=== PATIENT | male | born 1975 | race Caucasian/White ===

== ENCOUNTER 2022-06-14 11:54 | Inpatient (IN) | payer BC, MEDICAID, SELFPAY ==
[2022-06-14] VITALS (39 sets, daily range): BP systolic 140–162; BP diastolic 61–109; PULSE 116–154; RESP 22–44; TEMP 36.4; O2SAT 100; BMI 29.4
--- NOTE | ~2022-06-14 | XR_ITS ---
EXAMINATION: XR chest 2V 06/14/2022 12:40 INDICATION: Chest pain and shortness of breath PROCEDURE: 2 view chest COMPARISON: No prior studies for comparison. FINDINGS: The lungs are clear. The cardiomediastinal silhouette is within normal limits. There are no pleural effusions. There is no pneumothorax suspected. There is a calcified granuloma in the rig ht middle lobe. IMPRESSION: 1: NO ACUTE CARDIOPULMONARY DISEASE. Reviewed, dictated and finalized at location B. RAMMING DIRECTOR
--- NOTE | 2022-06-14 11:55 | ECG_ITS ---
Measurements Intervals [place] Rate: 124 P: [place]: 0 QRS: 7 QRSD: 90 T: 49 QT: 292 QTc: 420 Interpretive Statements SINUS TACHYCARDIA ABNORMAL RHYTHM ECG NO PREVIOUS ECG AVAILABLE FOR COMPARISON Electronically Signed On 06-14-2022 15:36:11 COMPUTER GRAPHIC DESIGNER by Adam Trinh M.D.
--- NOTE | 2022-06-14 12:08 | PC.NURSE ---
Pt is from [facility]. pt was arrested yesterday he states. pt states he also stopped using fentanyl 4 days ago.
[2022-06-14 12:15] LABS: Hematocrit 54.7 % (42.0-52.0); Hemoglobin 17.6 g/dL (14.0-18.0); Mean Corpuscular HGB Conc 32.2 g/dl (32-36); Mean Corpuscular Hemoglobin 27.5 pg (26-34); Mean Corpuscular Volume 85.6 fl (80-100); Mean Platelet Volume 10.7 fl (7.4-10.4); Platelet Count Result 383 k/mm3 (150-375); Red Blood Count 6.39 M/mm3 (4.6-6.20); Red Cell Distribution Width 13.7 % (11.5-14.5); White Blood Count 44.6 K/mm3 (4.5-10.0)
[2022-06-14 12:28] LABS: INR 1.3
[2022-06-14 12:29] LABS: Partial Thromboplastin Time 31.3 SECONDS (22.3-36.8)
[2022-06-14 12:39] LABS: Troponin I < 0.012 ng/mL (0.000-0.034)
[2022-06-14 12:40] LABS: Alanine Aminotransferase 51 U/L (6-50); Alkaline Phosphatase 155 U/L (38-126); Aspartate Amino Transferase 33 U/L (17-59); Blood Urea Nitrogen 37 mg/dL (9-20); Calcium 9.1 mg/dL (8.4-10.2); Carbon Dioxide < 5 mmol/L (22-30); Chloride 92 mmol/L (98-107); Estimated Glomerular Filt Rate 34; Glucose 1069 mg/dL (65-110); Lipase 335 U/L (23-300); Potassium 6.1 mmol/L (3.4-5.0); Sodium 128 mmol/L (137-145)
[2022-06-14 12:51] LABS: Band Neutrophils Percent 8 % (0-6); Lymphocytes Absolute Manual 2.23 K/mm3 (1.1-4.5); Lymphocytes Percent Manual 5 % (18-44); Monocytes Absolute Manual 5.79 K/mm3 (0.1-0.90); Monocytes Percent Manual 13 % (3-9); Neutrophils Absolute Manual 36.12 K/mm3 (1.3-6.7); Neutrophils Percent Manual 73 % (46-73); Total Cells Counted 100
[2022-06-14 12:52] LABS: Metamyelocytes Percent 1 %; Platelet Estimate Adequate (Adequate); Schistocytes None Seen (NORMAL)
[2022-06-14] MEDS: ASPIRIN 81 MG CHEWABLE TABLET 324 MG PO (12:54)
[2022-06-14] MEDS: SODIUM CHLORIDE 0.9% IV 1,000 ML 999 ML IV CONT ×3 (12:56→13:20)
[2022-06-14 13:00] LABS: Alveolar/Arterial O2 Gradient 2.3 mmHg; Base Excess ABG -25.8 mEq/l (+/-2.0); Carboxyhemoglobin 0.8 % THb (0-2.0); Fractional Inspired Oxygen 21 %; HCO3 ABG 3.4 mEq/l (22.0-26.0); Methemoglobin ABG 0.6 %THb (0-1.5); Oxygen Content ABG 23.7 %vol (16.0-22.0); Oxyhemoglobin 96.2 % THb (90.0-100.0); PO2 ABG 130.7 mmHg (80.0-100.0); PO2 FiO2 Ratio Arterial Blood 6.22 %; Reduced Hemoglobin 2.4 %THb (0-5.0); Total Hemoglobin 17.4 g/dL (12.0-18.0)
--- NOTE | 2022-06-14 13:01 | ED.CHESTPAIN ---
HPI - Chest Pain General Chief Complaint: Chest Pain Stated Complaint: chest pain Time Seen by Provider: 06/14/22 12:41 History of Present Illness HPI narrative: Patient is a 46-year-old male who presents ER in moderate distress. Reports has some aching chest pain but also reports he is very thirsty. He has had some dry heaves. Patient has been in senior care for the last 4 days. He is currently withdrawing from fentanyl. Accu-Chek reading high. Patient denies personal history of diabetes. He reports that he has been having increased thirst over the last month. Reports family history of diabetes. Patient also endorses diffuse body cramping. Related Data Home Medications Medication Instructions Recorded Confirmed lisinopril 20 mg tablet 20 mg PO DAILY 04/28/19 04/28/19 trazodone 50 mg tablet 50 mg PO HS 04/28/19 04/28/19 Allergies Allergy/AdvReac Type Severity Reaction Status Date / Time morphine AdvReac Intermediate Vomiting Verified 06/14/22 12:04 Review of Systems Review of Systems: All systems reviewed & are unremarkable except as noted in HPI and below Constitutional: Constitutional: Denies chills, Reports fatigue and Denies fever(s) ENT: Denies nasal congestion and Denies sore throat Cardiovascular: Cardiovascular: Reports chest pain, Denies rapid heart rate and Denies radiating jaw, neck or arm pain Respiratory: Respiratory: Denies cough and Denies dyspnea Gastrointestinal: Gastrointestinal: Denies abdominal pain, Denies diarrhea, Reports nausea and Reports vomiting Musculoskeletal: Musculoskeletal: Reports myalgias, Denies arthralgias, Denies joint swelling and Reports muscle cramps Endocrine: Endocrine: Reports polydipsia and Reports polyuria PMFSH Past Medical History Medical History (Updated 06/14/22 @ 18:47 by Roger Daniel MD) Gout Surgical History Surgical History (Updated 06/14/22 @ 15:52 by Sofía Lee PA-C) History of right knee surgery Social History Social History (Updated 06/14/22 @ 15:58 by Sofía Lee PA-C) Social History: Surrogate medical decision maker: Code status: Exam Narrative: GENERAL: Ill-appearing, well-nourished, and in moderate distress. HEAD: Normocephalic, atraumatic. EYES: PERRL and EOMI. ENT: Dry mucous membranes. NECK: Supple. CHEST: Clear to auscultation. No respiratory distress. HEART: Tachycardic and regular. Normal peripheral pulses. ABDOMEN: Soft, nontender, nondistended. EXTREMITIES: Normal range of motion. No edema. SKIN: Warm, dry, no rash. NEURO: Alert and oriented x3. PSYCH: Normal mood and affect. Course Course Emergency Course: Patient seriously here. Discussed case with clinical associate. Will bolus with 3 L IV fluid and started on maintenance fluid as well as an insulin drip. Patient also received 10 units of insulin IV bolus. Given the acidosis that was found patient started on bicarb drip. Patient aware of diagnosis and treatment plan. Leukocytosis is nonspecific and is likely acute phase reactant. Patient also appears quite hemoconcentrated on his CBC. Fluids will go a long way in helping him. Vital Signs Vital signs: Vital Signs Temperature 97.5 F L 06/14/22 11:57 Pulse Rate 124 H 06/14/22 11:57 Pulse Oximetry 100 06/14/22 11:57 Oxygen Delivery Room Air 06/14/22 11:57 Temperature 97.5 F L 06/14/22 11:57 Pulse Rate 138 H 06/14/22 17:00 Respiratory Rate 42 H 06/14/22 17:00 Blood Pressure 162/104 H 06/14/22 17:00 Pulse Oximetry 100 06/14/22 16:09 Oxygen Delivery Nasal Cannula 06/14/22 12:45 Oxygen Flow Rate 2 06/14/22 12:45 MDM - Chest Pain Lab Data 06/14/22 12:05 06/14/22 12:06 Labs: Lab Results 06/14/22 06/14/22 06/14/22 Range/Units 12:05 12:06 12:06 WBC 44.6 H (4.5-10.0) K/mm3 RBC 6.39 H (4.6-6.20) M/mm3 Hgb 17.6 (14.0-18.0) g/dL Hct 54.7 H (42.0-52.0) % MCV 85.6 (80-100) fl MCH 27.5 (26-34)
[2022-06-14] MEDS: INSULIN HUMAN REGULAR (*BKC) 100 UNITS/ML 10 UNITS IV PUSH (13:03)
[2022-06-14 13:04] LABS: pH ABG 7.008 (7.350-7.450)
[2022-06-14 13:05] LABS: Modified Allen's Test Pass; Site Drawn LEFT RADIAL
[2022-06-14] MEDS: SODIUM BICARBONATE 8.4% 150 MEQ in WATER, STERILE FOR INJECTION 950 ML 50 MEQ IV CONT (13:37)
[2022-06-14] MEDS: SODIUM CHLORIDE 0.9% IV 1,000 ML 150 ML IV CONT ×3 (13:53→21:43)
[2022-06-14 14:05] LABS: Glucose Point of Care > 500 mg/dl (65-105)
--- NOTE | 2022-06-14 14:06 | PC.NURSE ---
Bedside blood glucose accucheck reading High. Dr Daniel notified at this time
[2022-06-14 14:16] LABS: Influenza A QL RT-PCR Negative (Negative); Influenza B QL RT-PCR Negative (Negative); SARS-CoV-2 RNA PCR Negative
[2022-06-14] MEDS: INSULIN HUMAN REGULAR (*BKC) 100 UNITS in SODIUM CHLORIDE 0.9% IV 99 ML 15.3 UNITS IV CONT (15:02)
[2022-06-14 15:05] LABS: Glucose 827 mg/dL (65-110)
[2022-06-14 15:45] LABS: Troponin I < 0.012 ng/mL (0.000-0.034)
--- NOTE | 2022-06-14 15:50 | PM.IMHP ---
H&P: HPI History of Present Illness Date/Time: 06/14/22 15:50 Chief Complaint: Chest pain and shortness of breath. Narrative: This is a 46-year-old male with hypertension and history of fentanyl addiction who presented to the emergency department via EMS for evaluation of chest pain and shortness a breath. Patient provides the following history. He has been detained at [facility] and the last several days he has felt unwell which he initially attributed to fentanyl withdrawal to include nausea and vomiting. The last 2 days he has experienced anterior chest tightness and shortness of breath to the point where he could not even speak in full sentences. I felt like I was literally dying. He denies headache, neck ache, sinus congestion, sore throat, cough, diarrhea, or dysuria. He denies exertional chest pain, pleuritic pain, palpitations, syncope, near syncope, orthopnea, paroxysmal nocturnal dyspnea, and lower extremity edema. No epigastric or abdominal pain, bloating, belching, hematemesis, melena, hematochezia. No known sick contacts. Vital signs on arrival to the ED: Pulse 124, blood pressure 160/84, respiratory rate 36, temperature 97.5?. Pertinent labs include a WBC of 44.6 (8% bands), sodium 128, potassium 6.1, chloride 92, serum carbon dioxide < 5, BUN 37, creatinine 2.10, glucose 1069, lipase 335. ABG showed a pH of 7.008, pCO2 14.0, bicarb 3.4. He was negative for influenza and COVID. Chest x-ray showed no acute cardiopulmonary disease. EKG showed sinus tachycardia with no acute ST segment changes. He has no known history of diabetes or prediabetes. He has unintentionally lost about 35 to 40 lb. He has evidence of tinea on exam today. He has not had any paresthesias, blurry vision, and has not noticed any nonhealing wounds. He does endorse polydipsia. His has since been started on an insulin drip and he is being admitted to the ICU with new onset diabetes. Review of Systems Review of Systems: Twelve systems were reviewed and are negative except for as per HPI. [facility] Past Medical History Medical History (Updated 06/14/22 @ 22:31 by Sofía Lee PA-C) Gout Hypertension Surgical History Surgical History History of right knee surgery Family History Family History Father Diabetes mellitus End stage renal disease Mother Hypertension Social History Social History (Updated 06/14/22 @ 22:18 by Sofía Lee PA-C) Social History: Surrogate medical decision maker: Muna Saini, mother. Code status: Full code. Smoking status: Never smoker Alcohol intake: never Substance use: current Substance use type: opiates Meds Home Medications and Allergies Home Medications Medication Instructions Recorded Confirmed Type doxycycline monohydrate 100 mg 100 mg PO BID #20 tabs 04/28/19 Rx tablet lisinopril 20 mg tablet 20 mg PO DAILY 04/28/19 04/28/19 History trazodone 50 mg tablet 50 mg PO HS 04/28/19 04/28/19 History triamcinolone acetonide 0.1 % 1 applic topical BID #15 grams 04/28/19 Rx topical cream Allergies Allergy/AdvReac Type Severity Reaction Status Date / Time morphine AdvReac Intermediate Vomiting Verified 06/14/22 12:04 Vital Signs Vital Signs - 24 hr 06/14/22 11:57 06/14/22 12:45 06/14/22 13:23 Temperature 97.5 F L Pulse Rate 124 H 116 H Respiratory Rate 36 H Blood Pressure 156/62 H Pulse Oximetry 100 100 100 Oxygen Delivery Room Air Nasal Cannula Oxygen Flow Rate 2 06/14/22 13:25 06/14/22 13:27 06/14/22 13:31 Temperature Pulse Rate 119 H 117 H 117 H Respiratory Rate 37 H 34 H 42 H Blood Pressure 140/74 147/61 H Pulse Oximetry 100 100 100 Oxygen Delivery Oxygen Flow Rate 06/14/22 13:32 06/14/22 13:45 06/14/22 14:02 Temperature Pulse Rate 118 H 120 H 122 H Respiratory Rate 39 H 41 H 37
[2022-06-14 16:20] LABS: Glucose Point of Care > 500 mg/dl (65-105)
[2022-06-14 16:52] LABS: Lactic Acid Reflex 1.8 mmol/L (0.7-2.0)
[2022-06-14 16:58] LABS: Anion Gap 20 mmol/L (8-16); Blood Urea Nitrogen 38 mg/dL (9-20); Calcium 9.2 mg/dL (8.4-10.2); Carbon Dioxide 6 mmol/L (22-30); Chloride 108 mmol/L (98-107); Estimated Glomerular Filt Rate 51; Magnesium 2.9 mg/dL (1.6-2.3); Phosphorus 2.5 mg/dL (2.5-4.5); Potassium 4.5 mmol/L (3.4-5.0); Sodium 134 mmol/L (137-145)
[2022-06-14 17:06] LABS: Glucose 668 mg/dL (65-110)
[2022-06-14] MEDS: SODIUM BICARBONATE 8.4% 50 MEQ/50 ML SYRINGE 100 MEQ IV PUSH (17:07)
[2022-06-14 17:17] LABS: Anion Gap 20 mmol/L (8-16); Blood Urea Nitrogen 39 mg/dL (9-20); Calcium 9.3 mg/dL (8.4-10.2); Carbon Dioxide 6 mmol/L (22-30); Chloride 107 mmol/L (98-107); Estimated Glomerular Filt Rate 47; Potassium 4.7 mmol/L (3.4-5.0); Sodium 133 mmol/L (137-145)
[2022-06-14 17:34] LABS: Glucose 666 mg/dL (65-110)
[2022-06-14 17:35] LABS: Add Urine Microscopic? YES; Appearance Urine Clear (Clear); Bacteria Urine None Seen /hpf; Bilirubin Urine Negative (Negative); Blood Urine 2+ (Negative); Color Urine Yellow (Yellow); Glucose Urine UA 3+ mg/dL (Negative); Ketones Urine 4+ mg/dL (Negative); Leukocyte Esterase Ur Negative LEU/UL (NEGATIVE); Nitrate Urine Negative (Negative); Protein Urine 1+ mg/dL (Negative); RBC Urine 0-2 /hpf (0-2); Specific Grav Ur 1.023 (1.001-1.035); Squamous Epithelial Cell Urine None seen /hpf (Few); Urobilinogen Urine 0.2 mg/dL (<2.0); WBC Urine 0-5 /hpf (0-3)
[2022-06-14 18:09] LABS: Hemoglobin A1C > 14.0 % (<5.7)
[2022-06-14 18:24] LABS: Troponin I < 0.012 ng/mL (0.000-0.034)
[2022-06-14 18:51] LABS: Glucose Point of Care > 500 mg/dl (65-105)
[2022-06-14 20:29] LABS: Glucose Point of Care 398 mg/dl (65-105)
[2022-06-14 20:56] LABS: Anion Gap 19 mmol/L (8-16); Blood Urea Nitrogen 38 mg/dL (9-20); Calcium 10.1 mg/dL (8.4-10.2); Carbon Dioxide 8 mmol/L (22-30); Chloride 111 mmol/L (98-107); Estimated Glomerular Filt Rate > 60; Glucose 427 mg/dL (65-110); Potassium 3.9 mmol/L (3.4-5.0); Sodium 138 mmol/L (137-145)
[2022-06-14 21:50] LABS: Glucose Point of Care 341 mg/dl (65-105)
[2022-06-14 22:24] LABS: Glucose Point of Care 333 mg/dl (65-105)
--- NOTE | 2022-06-14 22:50 | PC.NURSE ---
This patient, Raj Saini, was admitted to Intensive Care Unit-9. Patient/family oriented to hospital policies and general routines including ID bracelet, bed and alarms, visiting hours, pain management, procedures, bathroom and other care routines, personal items, smoking policy, room service/diet, and visiting hours. Information on how to activate the Rapid Response Team has been discussed. Patient/Family are encouraged to report perceived risks to care and to ask questions if they do not understand what they are told or what they should do.
[2022-06-14 23:07] LABS: Glucose Point of Care 328 mg/dl (65-105)
[2022-06-14 23:53] LABS: CRP 3.9 mg/dL (<1.0)
[2022-06-14 23:59] LABS: Glucose Point of Care 302 mg/dl (65-105)
[2022-06-15] VITALS (18 sets, daily range): BP systolic 153–177; BP diastolic 83–115; PULSE 69–134; RESP 18–38; TEMP 36.4–37.3; O2SAT 100
[2022-06-15] MEDS: SODIUM CHLORIDE 0.9% IV 1,000 ML 999 ML IV CONT
[2022-06-15] MEDS: INSULIN HUMAN REGULAR (*BKC) 100 UNITS in SODIUM CHLORIDE 0.9% IV 99 ML 7.3 UNITS IV CONT (00:01)
[2022-06-15 01:08] LABS: Glucose Point of Care 267 mg/dl (65-105)
[2022-06-15 01:24] LABS: Anion Gap 14 mmol/L (8-16); Blood Urea Nitrogen 36 mg/dL (9-20); Calcium 9.6 mg/dL (8.4-10.2); Carbon Dioxide 13 mmol/L (22-30); Chloride 113 mmol/L (98-107); Estimated CRCL calculation 83 ml/min; Estimated Glomerular Filt Rate > 60; Glucose 263 mg/dL (65-110); Potassium 3.7 mmol/L (3.4-5.0); Sodium 140 mmol/L (137-145)
[2022-06-15 02:11] LABS: Glucose Point of Care 235 mg/dl (65-105)
[2022-06-15] MEDS: KCL 20 MEQ/D5/0.45% SOD CHL 1,000 ML 150 ML IV CONT ×2 (02:13→08:39)
[2022-06-15 03:01] LABS: Glucose Point of Care 185 mg/dl (65-105)
[2022-06-15 03:36] LABS: Hematocrit 49.9 % (42.0-52.0); Mean Corpuscular HGB Conc 34.1 g/dl (32-36); Mean Corpuscular Hemoglobin 27.6 pg (26-34); Mean Corpuscular Volume 81.1 fl (80-100); Mean Platelet Volume 9.8 fl (7.4-10.4); Platelet Count Result 203 k/mm3 (150-375); Red Blood Count 6.15 M/mm3 (4.6-6.20); Red Cell Distribution Width 14.2 % (11.5-14.5); White Blood Count 21.5 K/mm3 (4.5-10.0)
[2022-06-15 03:57] LABS: Alanine Aminotransferase 40 U/L (6-50); Albumin Level 3.7 g/dL (3.5-5.1); Alkaline Phosphatase 115 U/L (38-126); Anion Gap 11 mmol/L (8-16); Aspartate Amino Transferase 27 U/L (17-59); Bilirubin,Total 0.9 mg/dL (0.2-1.3); Blood Urea Nitrogen 32 mg/dL (9-20); Calcium 8.9 mg/dL (8.4-10.2); Carbon Dioxide 13 mmol/L (22-30); Chloride 119 mmol/L (98-107); Estimated CRCL calculation 92 ml/min; Estimated Glomerular Filt Rate > 60; Glucose 176 mg/dL (65-110); Magnesium 2.7 mg/dL (1.6-2.3); Potassium 3.2 mmol/L (3.4-5.0); Sodium 143 mmol/L (137-145)
[2022-06-15 04:08] LABS: Glucose Point of Care 184 mg/dl (65-105)
[2022-06-15 04:40] LABS: Band Neutrophils Percent 15 % (0-6); Lymphocytes Absolute Manual 1.72 K/mm3 (1.1-4.5); Monocytes Absolute Manual 0.86 K/mm3 (0.1-0.90); Monocytes Percent Manual 4 % (3-9); Neutrophils Absolute Manual 18.92 K/mm3 (1.3-6.7); Neutrophils Percent Manual 73 % (46-73); Platelet Estimate Adequate (Adequate); Total Cells Counted 100
[2022-06-15 04:49] LABS: Schistocytes None Seen (NORMAL); Smudge Cells PRESENT
[2022-06-15 05:09] LABS: Glucose Point of Care 201 mg/dl (65-105)
[2022-06-15 06:11] LABS: Glucose Point of Care 145 mg/dl (65-105)
[2022-06-15 07:28] LABS: Glucose Point of Care 142 mg/dl (65-105)
[2022-06-15] MEDS: FAMOTIDINE 20 MG/2 ML VIAL IV PUSH ×2 (08:38→20:12)
[2022-06-15] MEDS: POTASSIUM CHLORIDE 20 MEQ TABLET 40 MEQ PO ×2 (08:38→13:59)
[2022-06-15] MEDS: ENOXAPARIN 40 MG/0.4 ML SYRINGE SUB-Q (08:39)
[2022-06-15 08:59] LABS: Glucose Point of Care 190 mg/dl (65-105)
[2022-06-15 09:36] LABS: Glucose Point of Care 135 mg/dl (65-105)
[2022-06-15 09:43] LABS: Anion Gap 11 mmol/L (8-16); Blood Urea Nitrogen 28 mg/dL (9-20); Calcium 8.9 mg/dL (8.4-10.2); Carbon Dioxide 15 mmol/L (22-30); Chloride 117 mmol/L (98-107); Estimated CRCL calculation 116 ml/min; Estimated Glomerular Filt Rate > 60; Glucose 130 mg/dL (65-110); Potassium 3.1 mmol/L (3.4-5.0); Sodium 143 mmol/L (137-145)
[2022-06-15 10:32] LABS: Glucose Point of Care 219 mg/dl (65-105)
--- NOTE | 2022-06-15 10:47 | PC.NURSE ---
Left voicemail with copper plater via phone at [phone]. Educator to follow up with patient.
[2022-06-15 11:37] LABS: Glucose Point of Care 100 mg/dl (65-105)
--- NOTE | 2022-06-15 11:57 | WPDCNINT ---
Assessment and Plan Assessment and plan (1) Diabetic ketoacidosis: Code(s): E11.10 - Type 2 diabetes mellitus with ketoacidosis without coma Status: Acute Assessment and Plan: Patient presented the ED with chest pain, shortness with, nausea, vomiting, polydipsia, polyuria, intentional weight loss -blood sugars were > 1000 in the ER, elevated beta hydroxybutyrate, anion gap metabolic acidosis. -he received a total of 5 L of IV fluids since admission, remains on insulin infusion per DKA protocol -once anion gap closes will transition him to long-acting insulin and sliding scale insulin -currently NPO except ice chips -hemoglobin A1c this admission is > 14.0 (2) Acute kidney injury: Code(s): N17.9 - Acute kidney failure, unspecified Status: Acute Assessment and Plan: Patient presented with creatinine of 2.10, -received adequate IV fluid -good urine output -creatinine is down to 0.7 this morning -continue to monitor renal function, electrolytes and urine output -replace potassium (3) Hypertension: Code(s): I10 - Essential (primary) hypertension Status: Acute Assessment and Plan: Essential hypertension, patient not on any medications at home, currently on hydralazine p.r.n. -will have to start him on some antihypertensive meds (4) Fentanyl dependence: Code(s): F11.20 - Opioid dependence, uncomplicated Status: Acute Assessment and Plan: Patient with history of fentanyl abuse and dependence, last fentanyl use was 1 week prior to admission. He states he either snorts fentanyl or takes fentanyl pills. Plan DVT prophylaxis: Lovenox Stress ulcer prophylaxis: Not indicated Nutrition: Ice chips for now Code Status: Full code Critical Care Time Spent: 47 minutes Due to a high probability of clinically significant, life threatening deterioration, the patient required my highest level of preparedness to intervene emergently and I personally spent this critical care time directly and personally managing the patient. This critical care time included obtaining a history; examining the patient; pulse oximetry; ordering and review of studies; arranging urgent treatment with development of a management plan; evaluation of patient's response to treatment; frequent reassessment; and discussions with other providers. It was exclusive of separately billable procedures and treating other patients and teaching time. Please see Assessment and Plan section and the rest of the note for further information on patient assessment and treatment This dictation may have been done utilizing a voice recognition system. Attempts have been made to correct errors. However, there may be uncorrected grammatical, spelling, and recognitions errors present. Quality Control Supervisor Consult Note Consult date: 06/15/22 Reason for consult: Diabetic ketoacidosis, new onset diabetes, shortness of breath, nausea, vomiting HPI: Raj Saini is a 46 year old male with past medical history of essential hypertension, history of fentanyl abuse presented the ED on 06/14/2022 with complains of chest pain, shortness breath, nausea, vomiting. In the ED his blood sugars were 1069, lipase of 335, BUN 37 creatinine 2.10. Serum CO2 <5, sodium 128, WBC of 44 with 8% bands. ABG showed a pH of 7.008, pCO2 14 and bicarb of 3.4. He had anion gap metabolic acidosis, elevated beta hydroxybutyrate. Patient was diagnosed with diabetic ketoacidosis, given 3 L IV fluids and started on insulin infusion per DKA protocol and was transferred to the ICU for further management. -in the ER was negative for influenza A and B, SARS-CoV-2 PCR was negative. Chest x-ray was clear Patient seen and examined in the ICU this morning, is awake, alert, oriented, states he feels much better, complains of mild nausea but no vomiting, no shortness of breath, no chest pain or abdominal pain. Patient is hemodynamically stable, has been a little hypertensive.
[2022-06-15] MEDS: ONDANSETRON INJ 4 MG/2 ML VIAL IV PUSH (12:02)
[2022-06-15] MEDS: INSULIN HUMAN REGULAR (*BKC) 100 UNITS in SODIUM CHLORIDE 0.9% IV 99 ML 6.3 UNITS IV CONT (12:40)
[2022-06-15 12:43] LABS: Glucose Point of Care 123 mg/dl (65-105)
[2022-06-15 12:45] LABS: Anion Gap 12 mmol/L (8-16); Blood Urea Nitrogen 26 mg/dL (9-20); Calcium 9.4 mg/dL (8.4-10.2); Carbon Dioxide 15 mmol/L (22-30); Chloride 113 mmol/L (98-107); Estimated CRCL calculation 116 ml/min; Estimated Glomerular Filt Rate > 60; Glucose 89 mg/dL (65-110); Potassium 3.3 mmol/L (3.4-5.0); Sodium 140 mmol/L (137-145)
[2022-06-15 13:44] LABS: Glucose Point of Care 140 mg/dl (65-105)
[2022-06-15] MEDS: INSULIN GLARGINE (*BKC) 100 UNITS/ML 45 UNITS SUB-Q (13:59)
[2022-06-15] MEDS: hydrALAZINE HCL 20 MG/ML VIAL 10 MG IV PUSH ×3 (16:18→23:59)
[2022-06-15] MEDS: INSULIN ASPART (*BKC) 100 UNITS/ML SUB-Q ×2 (16:59→20:48)
[2022-06-15 17:23] LABS: Glucose Point of Care 279 mg/dl (65-105)
[2022-06-15] MEDS: POTASSIUM CHLORIDE 20 MEQ PACKET (FOR LIQUID) 40 MEQ PO (17:54)
[2022-06-15 20:19] LABS: Glucose Point of Care 321 mg/dl (65-105)
[2022-06-15 21:35] LABS: Anion Gap 14 mmol/L (8-16); Blood Urea Nitrogen 20 mg/dL (9-20); Calcium 9.1 mg/dL (8.4-10.2); Carbon Dioxide 14 mmol/L (22-30); Chloride 107 mmol/L (98-107); Estimated CRCL calculation 116 ml/min; Estimated Glomerular Filt Rate > 60; Glucose 300 mg/dL (65-110); Potassium 3.6 mmol/L (3.4-5.0); Sodium 135 mmol/L (137-145)
[2022-06-15] MEDS: SODIUM CHLORIDE 0.9% IV 500 ML IV CONT (22:05)
[2022-06-15 23:36] LABS: Anion Gap 12 mmol/L (8-16); Blood Urea Nitrogen 18 mg/dL (9-20); Calcium 9.2 mg/dL (8.4-10.2); Carbon Dioxide 16 mmol/L (22-30); Chloride 106 mmol/L (98-107); Estimated CRCL calculation 116 ml/min; Estimated Glomerular Filt Rate > 60; Glucose 260 mg/dL (65-110); Potassium 3.6 mmol/L (3.4-5.0); Sodium 134 mmol/L (137-145)
[2022-06-16] VITALS (10 sets, daily range): BP systolic 148–169; BP diastolic 72–90; PULSE 98–152; RESP 17–40; TEMP 36.4–37.7; O2SAT 98–100
--- NOTE | 2022-06-16 00:28 | PC.NURSE ---
RECEIVED PT FROM ICU PER W/C. VOICES NO C/O
--- NOTE | 2022-06-16 00:29 | PC.NURSE ---
This patient, Raj Saini, was transferred to [facility] on 06/16/22 at 0005. Personal belongings sent with patient. Report given to BINA Mcnally. Appropriate documentation sent with patient.
[2022-06-16] MEDS: ONDANSETRON INJ 4 MG/2 ML VIAL IV PUSH (02:45)
[2022-06-16 05:16] LABS: Basophils Absolute Auto 0.1 K/mm3 (0.0-0.1); Basophils Percent Auto 0.2 % (0.2-1.2); Hematocrit 44.7 % (42.0-52.0); Hemoglobin 15.7 g/dL (14.0-18.0); Immature Granulocyte Absolute 0.18 K/mm3 (0.00-0.031); Immature Granulocyte Percent A 0.9 % (0-0.5); Lymphocytes Absolute Auto 2.22 K/mm3 (0.9-3.2); Lymphocytes Percent Auto 10.5 % (18.3-44.2); Mean Corpuscular HGB Conc 35.1 g/dl (32-36); Mean Corpuscular Volume 79.7 fl (80-100); Mean Platelet Volume 9.6 fl (7.4-10.4); Monocytes Absolute Auto 1.9 K/mm3 (0.1-0.6); Monocytes Percent Auto 8.9 % (2.6-8.5); Neutrophils Absolute Auto 16.8 K/mm3 (1.3-6.7); Neutrophils Percent Auto 79.5 % (45.5-73.1); Platelet Count Result 209 k/mm3 (150-375); Red Blood Count 5.61 M/mm3 (4.6-6.20); Red Cell Distribution Width 14.2 % (11.5-14.5); White Blood Count 21.1 K/mm3 (4.5-10.0)
[2022-06-16 05:32] LABS: Alanine Aminotransferase 34 U/L (6-50); Albumin Level 3.6 g/dL (3.5-5.1); Alkaline Phosphatase 103 U/L (38-126); Anion Gap 13 mmol/L (8-16); Aspartate Amino Transferase 21 U/L (17-59); Bilirubin,Total 1.2 mg/dL (0.2-1.3); Blood Urea Nitrogen 17 mg/dL (9-20); Calcium 8.6 mg/dL (8.4-10.2); Carbon Dioxide 13 mmol/L (22-30); Chloride 106 mmol/L (98-107); Estimated CRCL calculation 134 ml/min; Estimated Glomerular Filt Rate > 60; Glucose 258 mg/dL (65-110); Phosphorus 2.8 mg/dL (2.5-4.5); Potassium 3.6 mmol/L (3.4-5.0); Sodium 132 mmol/L (137-145)
[2022-06-16] MEDS: INSULIN ASPART (*BKC) 100 UNITS/ML SUB-Q ×2 (08:23→12:31)
[2022-06-16] MEDS: INSULIN GLARGINE (*BKC) 100 UNITS/ML 45 UNITS SUB-Q (08:24)
[2022-06-16 08:44] LABS: Glucose Point of Care 298 mg/dl (65-105)
[2022-06-16] MEDS: ENOXAPARIN 40 MG/0.4 ML SYRINGE SUB-Q (09:22)
[2022-06-16] MEDS: FAMOTIDINE 20 MG/2 ML VIAL IV PUSH ×2 (09:22→20:18)
--- NOTE | 2022-06-16 11:32 | ECG_ITS ---
Measurements Intervals [place] Rate: 105 P: 59 [place]: 127 QRS: -8 QRSD: 85 T: 42 QT: 326 QTc: 431 Interpretive Statements SINUS TACHYCARDIA NONSPECIFIC T-WAVE ABNORMALITY ABNORMAL RHYTHM ECG COMPARED TO ECG 06/14/2022 12:00:17 HEART RATE IS REDUCED, T-WAVE FLATTENING IS NOTED Electronically Signed On 06-17-2022 7:07:34 MILITARY PILOT by Adam Trinh M.D.
[2022-06-16 11:57] LABS: Glucose Point of Care 299 mg/dl (65-105)
[2022-06-16] MEDS: SODIUM CHLORIDE 0.9% IV 500 ML 999 ML IV CONT (12:11)
--- NOTE | 2022-06-16 12:42 | PM.IMPN ---
Progress Note: A&P Assessment and Plan (1) Diabetic ketoacidosis: Code(s): E11.10 - Type 2 diabetes mellitus with ketoacidosis without coma Status: Acute Assessment and Plan: Patient presented the ED with chest pain, shortness with, nausea, vomiting, polydipsia, polyuria, intentional weight loss -blood sugars were > 1000 in the ER, elevated beta hydroxybutyrate, anion gap metabolic acidosis. -he received a total of 5 L of IV fluids since admission, remains on insulin infusion per DKA protocol -once anion gap closes will transition him to long-acting insulin and sliding scale insulin -currently NPO except ice chips -hemoglobin A1c this admission is > 14.0 adjust insulin as needed. add bicarb oral (2) Acute kidney injury: Code(s): N17.9 - Acute kidney failure, unspecified Status: Acute Assessment and Plan: Patient presented with creatinine of 2.10, -received adequate IV fluid -good urine output -creatinine is down to 0.7 and resolved. -continue to monitor renal function, electrolytes and urine output -replace potassium (3) Hypertension: Code(s): I10 - Essential (primary) hypertension Status: Acute Assessment and Plan: Essential hypertension, patient not on any medications at home, currently on hydralazine p.r.n. start clonidine which will help with his withdawal as well. (4) Fentanyl dependence: Code(s): F11.20 - Opioid dependence, uncomplicated Status: Acute Assessment and Plan: Patient with history of fentanyl abuse and dependence, last fentanyl use was 1 week prior to admission. He states he either snorts fentanyl or takes fentanyl pills. his COWS scle with features of opioid withdrawal. he reports no alcohol use or othe rmedications will give a dose of morhine. start clonidine. will add codeine sulfate as well. Plan Leukocytosis 44,000 on admission. Down to 21,000. started on vancomycin and cefepime. Likely stress induced has no signs of infections evident. Antibiotics has been stopped now UA is negative. Influenza and COVID negative. Chest x-ray with no acute cardiopulmonary disease. Blood culture no growth to date Hyponatremia 128 on admission mild New onset diabetes mellitus Severe metabolic acidosis with bicarbonate less than 5 related to DKA. Hyperglycemia in 1069 on admission. Add oral bicarb. Lactic acid was normal. Elevated lipase likely due to hyperglycemia DVT prophylaxis: Lovenox Stress ulcer prophylaxis: Not indicated Nutrition: diabetic diet Code Status: Full code Subjective Date/time seen: 06/16/22 12:42 Interval history: feeling, nasueaated, reported to have some tachycardia. feels shaky. fentanyl use over a week ago he states. Review of Systems Review of Systems: All systems reviewed & are unremarkable except as noted in HPI and below Exam Narrative: General: Patient is pleasant, in no acute distress HEENT:? Pupils mid dilated equal and reactive to light; sclera is clear, moist oral mucosa Neck:? Supple, no lymphadenopathy Respiratory:? Clear to auscultation bilaterally, no wheezing, adequate air entry, patient seems to be slightly tachypneic while conversing Cardiac:? S1-S2 is normal, tachycardia Abdomen:? Soft, nontender, nondistended active bowel sound Extremities:? No edema, palpable pedal pulses Neuro:? Patient is awake, alert, oriented x3, nonfocal Skin:? Redness in the groin intertriginous area, multiple tattoos tremulous mildly Psych:? Normal and mentation affect Objective Data Vital Signs Vital Signs: Vital Signs - 24 hr 06/15/22 14:00 06/15/22 14:00 06/15/22 16:00 Temperature 97.6 F Pulse Rate 107 H 105 H 109 H Respiratory Rate 18 38 H Blood Pressure 157/100 H 177/106 H Pulse Oximetry 100 100 Oxygen Delivery 06/15/22 17:56 06/15/22 16:00 06/15/22 16:00 Temperature Pulse Rate 69 86 Respiratory Rate 21 H Blood Pressure 171/99 H Pulse Oximetry 100 Oxygen
[2022-06-16] MEDS: MORPHINE SULFATE (*CRX) 4 MG/ML INJ 1 MG IV PUSH ×2 (12:50→20:17)
[2022-06-16 12:56] LABS: Glucose Point of Care 259 mg/dl (65-105)
[2022-06-16] MEDS: SODIUM BICARBONATE TAB 650 MG TABLET PO ×2 (13:43→16:40)
[2022-06-16] MEDS: CODEINE SULFATE (*CRX) 30 MG TABLET PO ×3 (13:43→23:31)
[2022-06-16] MEDS: cloNIDine HCL 0.1 MG TABLET PO ×2 (13:43→20:18)
[2022-06-16] MEDS: SODIUM CHLORIDE 0.9% IV 1,000 ML 100 ML IV CONT ×2 (13:43→23:32)
[2022-06-16 17:25] LABS: Glucose Point of Care 199 mg/dl (65-105)
[2022-06-16 18:56] LABS: Anion Gap 9 mmol/L (8-16); Blood Urea Nitrogen 13 mg/dL (9-20); Calcium 8.4 mg/dL (8.4-10.2); Carbon Dioxide 17 mmol/L (22-30); Chloride 103 mmol/L (98-107); Estimated CRCL calculation 134 ml/min; Estimated Glomerular Filt Rate > 60; Glucose 198 mg/dL (65-110); Potassium 3.1 mmol/L (3.4-5.0); Sodium 129 mmol/L (137-145)
[2022-06-16 20:09] LABS: Glucose Point of Care 199 mg/dl (65-105)
[2022-06-16] MEDS: traZODone HCL 50 MG TABLET PO (21:12)
[2022-06-16] MEDS: POTASSIUM CHLORIDE 20 MEQ TABLET 40 MEQ PO (21:13)
[2022-06-17] VITALS (12 sets, daily range): BP systolic 142–160; BP diastolic 64–91; PULSE 77–114; RESP 17–20; TEMP 36.7–37.6; O2SAT 96–100; BMI 28.8; BMI 27.8
[2022-06-17 05:42] LABS: Basophils Percent Auto 0.3 % (0.2-1.2); Eosinophils Absolute Auto 0.1 K/mm3 (0-0.3); Eosinophils Percent Auto 0.5 % (0-4.4); Hematocrit 42.8 % (42.0-52.0); Immature Granulocyte Absolute 0.08 K/mm3 (0.00-0.031); Immature Granulocyte Percent A 0.7 % (0-0.5); Lymphocytes Absolute Auto 1.71 K/mm3 (0.9-3.2); Lymphocytes Percent Auto 14.9 % (18.3-44.2); Mean Corpuscular HGB Conc 32.7 g/dl (32-36); Mean Corpuscular Hemoglobin 26.9 pg (26-34); Mean Corpuscular Volume 82.3 fl (80-100); Mean Platelet Volume 9.8 fl (7.4-10.4); Monocytes Percent Auto 8.5 % (2.6-8.5); Neutrophils Absolute Auto 8.6 K/mm3 (1.3-6.7); Neutrophils Percent Auto 75.1 % (45.5-73.1); Platelet Count Result 154 k/mm3 (150-375); Red Cell Distribution Width 13.3 % (11.5-14.5); White Blood Count 11.5 K/mm3 (4.5-10.0)
[2022-06-17 06:07] LABS: Alanine Aminotransferase 29 U/L (6-50); Albumin Level 3.2 g/dL (3.5-5.1); Alkaline Phosphatase 87 U/L (38-126); Anion Gap 8 mmol/L (8-16); Aspartate Amino Transferase 23 U/L (17-59); Blood Urea Nitrogen 11 mg/dL (9-20); Calcium 7.8 mg/dL (8.4-10.2); Carbon Dioxide 19 mmol/L (22-30); Chloride 100 mmol/L (98-107); Estimated CRCL calculation 157 ml/min; Estimated Glomerular Filt Rate > 60; Glucose 234 mg/dL (65-110); Magnesium 1.8 mg/dL (1.6-2.3); Potassium 2.9 mmol/L (3.4-5.0); Sodium 127 mmol/L (137-145)
[2022-06-17] MEDS: CODEINE SULFATE (*CRX) 30 MG TABLET PO ×3 (06:08→20:42)
[2022-06-17 08:33] LABS: Glucose Point of Care 230 mg/dl (65-105)
[2022-06-17] MEDS: SODIUM BICARBONATE TAB 650 MG TABLET PO ×2 (08:36→17:43)
[2022-06-17] MEDS: cloNIDine HCL 0.1 MG TABLET PO ×3 (08:36→20:42)
[2022-06-17] MEDS: FAMOTIDINE 20 MG/2 ML VIAL IV PUSH ×2 (08:37→20:41)
[2022-06-17] MEDS: ENOXAPARIN 40 MG/0.4 ML SYRINGE SUB-Q (08:37)
[2022-06-17] MEDS: POTASSIUM CHLORIDE 20 MEQ TABLET 40 MEQ PO ×2 (08:39→14:08)
[2022-06-17] MEDS: INSULIN GLARGINE (*BKC) 100 UNITS/ML 45 UNITS SUB-Q (08:41)
[2022-06-17] MEDS: INSULIN ASPART (*BKC) 100 UNITS/ML SUB-Q (08:43)
[2022-06-17] MEDS: SODIUM CHLORIDE 0.9% IV 1,000 ML 100 ML IV CONT ×2 (10:59→20:46)
[2022-06-17 11:47] LABS: Glucose Point of Care 196 mg/dl (65-105)
--- NOTE | 2022-06-17 11:56 | PM.IMPN ---
Progress Note: A&P Assessment and Plan (1) Diabetic ketoacidosis: Code(s): E11.10 - Type 2 diabetes mellitus with ketoacidosis without coma Status: Acute Assessment and Plan: Patient presented the ED with chest pain, shortness with, nausea, vomiting, polydipsia, polyuria, intentional weight loss -blood sugars were > 1000 in the ER, elevated beta hydroxybutyrate, anion gap metabolic acidosis. -he received a total of 5 L of IV fluids since admission, remains on insulin infusion per DKA protocol -once anion gap closes will transition him to long-acting insulin and sliding scale insulin -currently NPO except ice chips -hemoglobin A1c this admission is > 14.0 adjust insulin as needed. add bicarb oral on Lantus 45 units and of prandial insulin/SSI. Will schedule prandial insulin for better glycemic control. Will leave the long-acting as is (2) Acute kidney injury: Code(s): N17.9 - Acute kidney failure, unspecified Status: Acute Assessment and Plan: Patient presented with creatinine of 2.10, -received adequate IV fluid -good urine output -creatinine is down to 0.7 and resolved. -continue to monitor renal function, electrolytes and urine output -replace potassium (3) Hypertension: Code(s): I10 - Essential (primary) hypertension Status: Acute Assessment and Plan: Essential hypertension, patient not on any medications at home, currently on hydralazine p.r.n. start clonidine which will help with his withdawal as well. (4) Fentanyl dependence: Code(s): F11.20 - Opioid dependence, uncomplicated Status: Acute Assessment and Plan: Patient with history of fentanyl abuse and dependence, last fentanyl use was 1 week prior to admission. He states he either snorts fentanyl or takes fentanyl pills. his COWS scle with features of opioid withdrawal. he reports no alcohol use or othe rmedications will give a dose of morhine. start clonidine. added codeine sulfate which will be slowly tapered off Increase clonidine to 0.1 mg q.8 hours for symptom treatment for his opiate withdrawal. Plan Leukocytosis 44,000 on admission. Down to 21,000. started on vancomycin and cefepime. Likely stress induced has no signs of infections evident. Antibiotics has been stopped now UA is negative. Influenza and COVID negative. Chest x-ray with no acute cardiopulmonary disease. Blood culture no growth to date. He did spike of fever yesterday could be related to the withdrawal. His WBC count continues to decline down to 10,000 today Hyponatremia 128 on admission mild New onset diabetes mellitus ship loader to see Severe metabolic acidosis with bicarbonate less than 5 related to DKA. Hyperglycemia in 1069 on admission. Add oral bicarb. Lactic acid was normal. Elevated lipase likely due to hyperglycemia DVT prophylaxis: Lovenox Stress ulcer prophylaxis: Not indicated Nutrition: diabetic diet Code Status: Full code Subjective Date/time seen: 06/17/22 11:56 Interval history: no overnight events. Intermittently tachycardic but improved. Feels less shaky. Denies shortness of breath. Blood sugar trend was reviewed. Review of Systems Review of Systems: All systems reviewed & are unremarkable except as noted in HPI and below Exam Narrative: General: Patient is pleasant, in no acute distress HEENT:? Pupils equal and reactive to light; sclera is clear, moist oral mucosa Neck:? Supple, no lymphadenopathy Respiratory:? Clear to auscultation bilaterally, no wheezing, adequate air entry, No respiratory distress Cardiac:? S1-S2 is normal, tachycardia Abdomen:? Soft, nontender, nondistended active bowel sound Extremities:? No edema, palpable pedal pulses Neuro:? Patient is awake, alert, oriented x3, nonfocal Skin:? Redness in the groin intertriginous area, multiple tattoos tremulous mildly Psych:? Normal and mentation affect Objective Data Vital Signs Vital Signs:
[2022-06-17] MEDS: MORPHINE SULFATE (*CRX) 2 MG/ML INJ IV PUSH (12:11)
[2022-06-17] MEDS: INSULIN ASPART (*BKC) 100 UNITS/ML 7 UNITS SUB-Q ×2 (12:53→17:43)
[2022-06-17 17:03] LABS: Glucose Point of Care 196 mg/dl (65-105)
[2022-06-17] MEDS: traZODone HCL 50 MG TABLET PO (20:42)
[2022-06-17] MEDS: MORPHINE SULFATE (*CRX) 4 MG/ML INJ 1 MG IV PUSH (20:45)
[2022-06-17 21:33] LABS: Glucose Point of Care 182 mg/dl (65-105)
[2022-06-18] VITALS (11 sets, daily range): BP systolic 136–152; BP diastolic 64–91; PULSE 73–108; RESP 18–20; TEMP 36.8–37.5; O2SAT 97–100
[2022-06-18] MEDS: SODIUM CHLORIDE 0.9% IV 1,000 ML 100 ML IV CONT (05:29)
[2022-06-18] MEDS: CODEINE SULFATE (*CRX) 30 MG TABLET PO ×2 (05:29→17:27)
[2022-06-18] MEDS: cloNIDine HCL 0.1 MG TABLET PO ×3 (05:29→21:20)
[2022-06-18 05:55] LABS: Basophils Percent Auto 0.5 % (0.2-1.2); Eosinophils Absolute Auto 0.1 K/mm3 (0-0.3); Eosinophils Percent Auto 0.9 % (0-4.4); Hematocrit 41.7 % (42.0-52.0); Hemoglobin 14.1 g/dL (14.0-18.0); Immature Granulocyte Absolute 0.07 K/mm3 (0.00-0.031); Immature Granulocyte Percent A 0.9 % (0-0.5); Lymphocytes Absolute Auto 1.68 K/mm3 (0.9-3.2); Lymphocytes Percent Auto 20.9 % (18.3-44.2); Mean Corpuscular HGB Conc 33.8 g/dl (32-36); Mean Corpuscular Hemoglobin 26.8 pg (26-34); Mean Corpuscular Volume 79.1 fl (80-100); Mean Platelet Volume 9.9 fl (7.4-10.4); Monocytes Absolute Auto 0.7 K/mm3 (0.1-0.6); Monocytes Percent Auto 8.4 % (2.6-8.5); Neutrophils Absolute Auto 5.5 K/mm3 (1.3-6.7); Neutrophils Percent Auto 68.4 % (45.5-73.1); Platelet Count Result 150 k/mm3 (150-375); Red Blood Count 5.27 M/mm3 (4.6-6.20); Red Cell Distribution Width 12.6 % (11.5-14.5); White Blood Count 8.1 K/mm3 (4.5-10.0)
[2022-06-18 06:08] LABS: Alanine Aminotransferase 30 U/L (6-50); Albumin Level 3.3 g/dL (3.5-5.1); Alkaline Phosphatase 87 U/L (38-126); Anion Gap 7 mmol/L (8-16); Aspartate Amino Transferase 24 U/L (17-59); Bilirubin,Total 0.7 mg/dL (0.2-1.3); Blood Urea Nitrogen 6 mg/dL (9-20); Calcium 8.2 mg/dL (8.4-10.2); Carbon Dioxide 25 mmol/L (22-30); Chloride 100 mmol/L (98-107); Estimated CRCL calculation 157 ml/min; Estimated Glomerular Filt Rate > 60; Glucose 171 mg/dL (65-110); Potassium 2.6 mmol/L (3.4-5.0); Sodium 132 mmol/L (137-145)
[2022-06-18] MEDS: POTASSIUM CHLORIDE 20 MEQ TABLET 40 MEQ PO (07:08)
[2022-06-18 08:15] LABS: Glucose Point of Care 161 mg/dl (65-105)
[2022-06-18] MEDS: INSULIN ASPART (*BKC) 100 UNITS/ML 7 UNITS SUB-Q ×3 (09:17→17:27)
[2022-06-18] MEDS: ENOXAPARIN 40 MG/0.4 ML SYRINGE SUB-Q (09:20)
[2022-06-18] MEDS: FAMOTIDINE 20 MG/2 ML VIAL IV PUSH ×2 (09:20→21:20)
[2022-06-18] MEDS: INSULIN GLARGINE (*BKC) 100 UNITS/ML 45 UNITS SUB-Q (09:22)
[2022-06-18] MEDS: MORPHINE SULFATE (*CRX) 4 MG/ML INJ 1 MG IV PUSH ×2 (09:31→21:20)
[2022-06-18] MEDS: POTASSIUM CHLORIDE INJ 40 MEQ in SODIUM CHLORIDE 0.9% IV 500 ML 130 MEQ IVPB (09:34)
[2022-06-18 12:19] LABS: Glucose Point of Care 163 mg/dl (65-105)
--- NOTE | 2022-06-18 13:23 | PM.IMPN ---
Progress Note: A&P Assessment and Plan (1) Diabetic ketoacidosis: Code(s): E11.10 - Type 2 diabetes mellitus with ketoacidosis without coma Status: Acute Assessment and Plan: Patient presented the ED with chest pain, shortness with, nausea, vomiting, polydipsia, polyuria, intentional weight loss -blood sugars were > 1000 in the ER, elevated beta hydroxybutyrate, anion gap metabolic acidosis. -he received a total of 5 L of IV fluids since admission, remains on insulin infusion per DKA protocol -once anion gap closes will transition him to long-acting insulin and sliding scale insulin -currently NPO except ice chips -hemoglobin A1c this admission is > 14.0 adjust insulin as needed. add bicarb oral on Lantus 45 units and of prandial insulin/SSI. Will schedule prandial insulin for better glycemic control. Will leave the long-acting as is Blood sugar trend reviewed 06/18/2022. Continue Lantus 45 units with prandial insulin 7 units with meals. certified adaptive physical educator seen the patient (2) Acute kidney injury: Code(s): N17.9 - Acute kidney failure, unspecified Status: Acute Assessment and Plan: Patient presented with creatinine of 2.10, -received adequate IV fluid -good urine output -creatinine is down to 0.7 and resolved. -continue to monitor renal function, electrolytes and urine output -replace potassium recheck and monitor (3) Hypertension: Code(s): I10 - Essential (primary) hypertension Status: Acute Assessment and Plan: Essential hypertension, patient not on any medications at home, currently on hydralazine p.r.n. start clonidine which will help with his withdawal as well. Slowly taper off clonidine unless required for his hypertension (4) Fentanyl dependence: Code(s): F11.20 - Opioid dependence, uncomplicated Status: Acute Assessment and Plan: Patient with history of fentanyl abuse and dependence, last fentanyl use was 1 week prior to admission. He states he either snorts fentanyl or takes fentanyl pills. his COWS scle with features of opioid withdrawal. he reports no alcohol use or othe rmedications will give a dose of morhine. start clonidine. added codeine sulfate which will be slowly tapered off: Down to Q 12 hour dosing 06/18/2022 currently on clonidine to 0.1 mg q.8 hours for symptom treatment for his opiate withdrawal. Plan Leukocytosis 44,000 on admission. Down to 21,000. started on vancomycin and cefepime. Likely stress induced has no signs of infections evident. Antibiotics has been stopped now UA is negative. Influenza and COVID negative. Chest x-ray with no acute cardiopulmonary disease. Blood culture no growth to date. He did spike of fever yesterday could be related to the withdrawal. His WBC count continues to decline and now normalized. Hyponatremia 128 on admission mild. Slowly improving New onset diabetes mellitus educator senior clinical to see Severe metabolic acidosis with bicarbonate less than 5 related to DKA. Hyperglycemia in 1069 on admission. Add oral bicarb. Lactic acid was normal. Elevated lipase likely due to hyperglycemia DVT prophylaxis: Lovenox Stress ulcer prophylaxis: Not indicated Nutrition: diabetic diet Code Status: Full code Subjective Date/time seen: 06/18/22 13:23 Interval history: he feeling better. Blood sugar trend was reviewed. Seen a educator senior clinical. Potassium was low which getting replaced. No fever chills chest pain shortness of breath. Review of Systems Review of Systems: All systems reviewed & are unremarkable except as noted in HPI and below Exam Narrative: General: Patient is pleasant, in no acute distress HEENT:? Pupils equal and reactive to light; sclera is clear, moist oral mucosa Neck:? Supple, no lymphadenopathy Respiratory:? Clear to auscultation bilaterally, no wheezing, adequate air entry, No respiratory distress Cardiac:? S1-S2 is normal, Tele
[2022-06-18 17:17] LABS: Glucose Point of Care 164 mg/dl (65-105)
[2022-06-18 17:51] LABS: Potassium 2.8 mmol/L (3.4-5.0)
[2022-06-18] MEDS: POTASSIUM CHLORIDE 20 MEQ PACKET (FOR LIQUID) 40 MEQ PO ×2 (18:24→21:21)
[2022-06-18] MEDS: traZODone HCL 50 MG TABLET PO (21:20)
[2022-06-19] VITALS: PULSE 84
[2022-06-19 04:00] VITALS: PULSE 80
[2022-06-19 05:11] VITALS: BP 129/79; PULSE 76; RESP 20; TEMP 36.8; O2SAT 100
[2022-06-19 05:14] LABS: Basophils Absolute Auto 0.1 K/mm3 (0.0-0.1); Basophils Percent Auto 0.6 % (0.2-1.2); Eosinophils Absolute Auto 0.1 K/mm3 (0-0.3); Eosinophils Percent Auto 1.4 % (0-4.4); Hematocrit 42.8 % (42.0-52.0); Hemoglobin 14.5 g/dL (14.0-18.0); Immature Granulocyte Percent A 1.3 % (0-0.5); Lymphocytes Absolute Auto 1.07 K/mm3 (0.9-3.2); Lymphocytes Percent Auto 13.4 % (18.3-44.2); Mean Corpuscular HGB Conc 33.9 g/dl (32-36); Mean Corpuscular Hemoglobin 27.7 pg (26-34); Mean Corpuscular Volume 81.8 fl (80-100); Mean Platelet Volume 9.7 fl (7.4-10.4); Monocytes Absolute Auto 0.7 K/mm3 (0.1-0.6); Monocytes Percent Auto 8.5 % (2.6-8.5); Neutrophils Percent Auto 74.8 % (45.5-73.1); Platelet Count Result 150 k/mm3 (150-375); Red Blood Count 5.23 M/mm3 (4.6-6.20); Red Cell Distribution Width 12.6 % (11.5-14.5)
[2022-06-19 05:18] LABS: Alanine Aminotransferase 36 U/L (6-50); Albumin Level 3.4 g/dL (3.5-5.1); Alkaline Phosphatase 91 U/L (38-126); Anion Gap 3 mmol/L (8-16); Aspartate Amino Transferase 27 U/L (17-59); Bilirubin,Total 0.7 mg/dL (0.2-1.3); Blood Urea Nitrogen 5 mg/dL (9-20); Calcium 8.6 mg/dL (8.4-10.2); Carbon Dioxide 29 mmol/L (22-30); Chloride 98 mmol/L (98-107); Estimated CRCL calculation 134 ml/min; Estimated Glomerular Filt Rate > 60; Glucose 224 mg/dL (65-110); Potassium 3.4 mmol/L (3.4-5.0); Sodium 130 mmol/L (137-145)
[2022-06-19] MEDS: CODEINE SULFATE (*CRX) 30 MG TABLET PO (05:24)
[2022-06-19] MEDS: cloNIDine HCL 0.1 MG TABLET PO (05:24)
[2022-06-19] MEDS: MORPHINE SULFATE (*CRX) 4 MG/ML INJ 1 MG IV PUSH (05:24)
[2022-06-19 08:00] VITALS: PULSE 82
[2022-06-19 08:34] LABS: Glucose Point of Care 218 mg/dl (65-105)
--- NOTE | 2022-06-19 08:34 | PM.DS ---
DS: Admitting Diagnosis Discharge Date 06/19/22 Admitting Diagnosis Diabetic Ketoacidosis DS: Discharge Diagnosis Discharge Diagnosis (1) New onset type 2 diabetes mellitus: Code(s): E11.9 - Type 2 diabetes mellitus without complications Status: Acute (2) Acute hyperkalemia: Code(s): E87.5 - Hyperkalemia Status: Acute (3) Acute kidney injury: Code(s): N17.9 - Acute kidney failure, unspecified Status: Acute (4) Diabetic ketoacidosis: Code(s): E11.10 - Type 2 diabetes mellitus with ketoacidosis without coma Status: Acute DS: Summary Hospital Course Reason for hospitalization: Diabetic Ketoacidosis Hospital Course: 46-year-old male with hypertension and history of fentanyl addiction who presented to the emergency department via EMS for evaluation of chest pain and shortness a breath.?Pertinent labs include a WBC of 44.6 (8% bands), sodium 128, potassium 6.1, chloride 92, serum carbon dioxide < 5, BUN 37, creatinine 2.10, glucose 1069, lipase 335. ABG showed a pH of 7.008, pCO2 14.0, bicarb 3.4. He was negative for influenza and COVID. Chest x-ray showed no acute cardiopulmonary disease. Was admitted to ICU under DKA protocol with IV insulin. His AG closed, was transitioned to SQ insulin. SHADIA and Hyperkalemia improved as well. Diabetic education was done by community nutrition educator. Discharged home on basal bolus regimen with advice to follow up with PCP as outpatient. Status at Discharge Functional status at discharge: independent ambulation Overall status at discharge: patient is back to baseline Time Spent with Patient Time attestation: Total time spent providing and/or coordinating discharge services: Time spent: Greater than 30 minutes Exam Narrative: General:? Patient is pleasant, in no acute distress HEENT:? Pupils? equal and reactive to light; sclera is clear, moist oral mucosa Neck:? Supple, no lymphadenopathy Respiratory:? Clear to auscultation bilaterally, no wheezing, adequate air entry, ? No respiratory distress Cardiac:? S1-S2 is normal, ? Telemetry reviewed intermittent tachycardia now Abdomen:? Soft, nontender, nondistended active bowel sound Extremities:? No edema, palpable pedal pulses Neuro:? Patient is awake, alert, oriented x3, nonfocal Skin:? Redness in the groin intertriginous area, multiple tattoos tremulous mildly Psych:? Normal and mentation affect DS: Data Data Completed and Pending Labs on day of discharge: Labs from last 24 hours 06/19/22 06/19/22 06/18/22 04:43 04:43 17:33 WBC 8.0 RBC 5.23 Hgb 14.5 Hct 42.8 MCV 81.8 MCH 27.7 MCHC 33.9 RDW 12.6 Plt Count 150 MPV 9.7 Immature Gran % (Auto) 1.3 H Neut % (Auto) 74.8 H Lymph % (Auto) 13.4 L [place] % (Auto) 8.5 Eos % (Auto) 1.4 Baso % (Auto) 0.6 Lymph # (Auto) 1.07 [place] # (Auto) 0.7 H Eos # (Auto) 0.1 Baso # (Auto) 0.1 Abs Immat Gran (auto) 0.10 H Absolute Neuts (auto) 6.0 Absolute Nucleated RBC 0.0 Nucleated RBC % 0.0 Sodium 130 L Potassium 3.4 2.8 L* Chloride 98 Carbon Dioxide 29 Anion Gap 3 L BUN 5 L Creatinine 0.60 L Estim Creat Clear Calc 134 Estimated GFR > 60 Glucose 224 H POC Capillary Glucose Calcium 8.6 Magnesium 2.0 Total Bilirubin 0.7 AST 27 ALT 36 Alkaline Phosphatase 91 Total Protein 6.0 L Albumin 3.4 L 06/18/22 06/18/22 17:14 12:16 WBC RBC Hgb Hct MCV MCH MCHC RDW Plt Count MPV Immature Gran % (Auto) Neut % (Auto) Lymph % (Auto) [place] % (Auto) Eos % (Auto) Baso % (Auto) Lymph # (Auto) [place] # (Auto) Eos # (Auto) Baso # (Auto) Abs Immat Gran (auto) Absolute Neuts (auto) Absolute Nucleated RBC Nucleated RBC % Sodium Potassium Chloride Carbon Dioxide Anion Gap BUN Creatinine Estim Creat Clear Calc Estimated GFR Glucose POC Capillary Glucose 164 H 16
[2022-06-19] MEDS: POTASSIUM CHLORIDE 20 MEQ TABLET 40 MEQ PO (08:45)
[2022-06-19] MEDS: INSULIN GLARGINE (*BKC) 100 UNITS/ML 45 UNITS SUB-Q (08:45)
[2022-06-19] MEDS: INSULIN ASPART (*BKC) 100 UNITS/ML 9 UNITS SUB-Q (08:46)
[2022-06-19] MEDS: INSULIN ASPART (*BKC) 100 UNITS/ML SUB-Q (08:46)
[2022-06-19] MEDS: ENOXAPARIN 40 MG/0.4 ML SYRINGE SUB-Q (08:47)
[2022-06-19] MEDS: FAMOTIDINE 20 MG/2 ML VIAL IV PUSH (08:47)
== END 2022-06-19 09:45 | disposition home or self-care (01) | DRG 420 ==
LOC: ANHED 13:38 → ANHICU 15:34 → ANH2MED 06-16 00:13
PROVIDERS: Internal Medicine; Physician Assistant; Admitting Provider Internal Medicine; Emergency Provider Emergency Medicine; Visit Provider Internal Medicine
DX: E11.10 Type 2 diabetes mellitus with ketoacidosis without coma (principal); N17.9 Acute kidney failure, unspecified; E87.5 Hyperkalemia; B35.9 Dermatophytosis, unspecified; Z20.822 Contact with and (suspected) exposure to COVID-19; E87.1 Hypo-osmolality and hyponatremia; D72.829 Elevated white blood cell count, unspecified; E86.0 Dehydration; F11.23 Opioid dependence with withdrawal; I10 Essential (primary) hypertension; R00.0 Tachycardia, unspecified
CPT/HCPCS: 36415; 36600; 71046; 80048; 80053; 81001; 82375; 82805; 82947; 82948; 83036; 83050; 83605; 83690; 83735; 84100; 84132; 84145; 84484; 85025; 85610; 85730; 86140; 87040; 87636; 93005; 96361; 96365; 96366; 96367; 96375; 99285; A9270; G0378; G0379; J0131; J0360; J1650; J1815; J2270; J2405; J3480; J7030; J7040